=== PATIENT | male | born 1975 | race Two or more races ===

== ENCOUNTER 2020-01-14 19:52 | Emergency (ER) | payer BC ==
[~2020-01-14] VITALS: Ht 177.8 cm; Wt 79.4 kg
[~2020-01-14 19:52] MED LIST: NAPR375T27 PO
[2020-01-14] MEDS ORDERED: ASPirin 81 mg TAB PO ONE (20:30)
[2020-01-14 21:33] LABS: Basophils # (auto) 0 10 ^3/uL (0-0.2); Basophils % (auto) 0.6 % (0.0-2.0); Eosinophils # (auto) 0.2 10 ^3/uL (0-0.8); Eosinophils % (auto) 3.5 % (0.0-7.0); Hematocrit 44.9 % (41.0-53.0); Lymphocytes # (auto) 1.3 10 ^3/uL (0.4-5.4); Mean Corpuscular Hemoglobin 30.2 pg (28.0-32.0); Mean Corpuscular Hgb Conc. 33.4 g/dL (32.0-36.0); Mean Corpuscular Volume 90.4 fL (80.0-100.0); Monocytes # (auto) 0.4 10 ^3/uL (0-1.3); Monocytes % (auto) 6.9 % (0.0-12.0); Neutrophils # (auto) 4.2 10 ^3/uL (1.6-8.6); Platelet Count (auto) 230 10^3/uL (140-450); Red Blood Cells 4.97 10^6/uL (4.5-5.90); Red Cell Distribution Width 12.9 % (11.8-14.3); White Blood Cell 6.2 10^3/uL (4.4-10.8)
[2020-01-14 21:49] LABS: Albumin 3.7 g/dL (3.4-5.0); Anion Gap 4 (5-15); Calcium 8.6 mg/dL (8.5-10.1); Carbon Dioxide 30 mmol/L (21-32); Chloride 106 mmol/L (98-107); Potassium 3.7 mmol/L (3.5-5.1); Sodium 140 mmol/L (136-145)
[2020-01-14 21:53] LABS: Alanine Aminotransferase 23 U/L (16-61); Aspartate Aminotransferase 22 U/L (15-37); BUN/Creatinine Ratio 23.6; Blood Urea Nitrogen 25 mg/dL (7-18); GFR African American 97 mL/min; GFR Non-African American 80 mL/min; Glucose 90 mg/dL (74-106); Magnesium 2.3 mg/dL (1.6-2.6)
[2020-01-14 21:58] LABS: Alkaline Phosphatase 56 U/L (45-117); Bilirubin, Total 0.4 mg/dL (0.2-1.0)
[2020-01-14 22:38] LABS: INR 1.15 (0.9-1.15); Partial Thromboplastin Time 27.7 sec (23.64-32.05)
== END 2020-01-15 00:45 | disposition home or self-care (01) ==
LOC: ER 19:52 → MERGE 19:52 → ER 01-15 00:45
DX: K29.70 Gastritis, unspecified, without bleeding (principal); F41.9 Anxiety disorder, unspecified
CPT/HCPCS: 36415; 71046; 80053; 83735; 83880; 84443; 84484; 85025; 85610; 85730; 93005

== ENCOUNTER 2022-03-11 01:51 | Emergency (ER) | payer BC, OTHER ==
[~2022-03-11] VITALS: Ht 175.3 cm; Wt 95.3 kg
[2022-03-11 03:12] LABS: Basophils # (auto) 0 10 ^3/uL (0-0.2); Basophils % (auto) 0.8 % (0.0-2.0); Eosinophils # (auto) 0.2 10 ^3/uL (0-0.8); Eosinophils % (auto) 3.9 % (0.0-7.0); Hematocrit 43.1 % (41.0-53.0); Hemoglobin 14.9 g/dL (13.5-17.5); Lymphocytes # (auto) 1.1 10 ^3/uL (0.4-5.4); Lymphocytes % (auto) 21.1 % (10.0-50.0); Mean Corpuscular Hemoglobin 30.6 pg (28.0-32.0); Mean Corpuscular Hgb Conc. 34.5 g/dL (32.0-36.0); Mean Corpuscular Volume 88.7 fL (80.0-100.0); Monocytes # (auto) 0.5 10 ^3/uL (0-1.3); Monocytes % (auto) 9.7 % (0.0-12.0); Neutrophils # (auto) 3.5 10 ^3/uL (1.6-8.6); Neutrophils % (auto) 64.5 % (37.0-80.0); Red Blood Cells 4.86 10^6/uL (4.5-5.90); White Blood Cell 5.3 10^3/uL (4.4-10.8)
[2022-03-11 03:30] LABS: Albumin 3.7 g/dL (3.4-5.0); Calcium 8.6 mg/dL (8.5-10.1); Potassium 4.1 mmol/L (3.5-5.1)
[2022-03-11 03:33] LABS: BUN/Creatinine Ratio 17.1; Bilirubin, Total 0.3 mg/dL (0.2-1.0)
[2022-03-11 04:50] VITALS: BP 131/75
== END 2022-03-11 04:56 | disposition home or self-care (01) ==
LOC: ER 01:51
DX: R07.89 Other chest pain (principal); F43.21 Adjustment disorder with depressed mood
CPT/HCPCS: 36415; 71045; 80053; 83880; 84484; 85025; 93005

== ENCOUNTER 2024-06-29 15:09 | Emergency (ER) | payer BC ==
[~2024-06-29] VITALS: Ht 175.3 cm; Wt 99.4 kg
[~2024-06-29 15:09] MED LIST changes: +NAPR-957 PO; -NAPR375T27 PO
[2024-06-29 17:24] LABS: Urine Bacteria None Seen /hpf (None Seen)
[2024-06-29 17:36] LABS: Urine Blood Negative /uL (Negative); Urine Clarity Clear (Clear); Urine Color Light-Yellow (Yellow); Urine Protein, UAD Negative (Negative); Urine Specific Gravity 1.025 (1.001-1.035); Urine Urobilinogen Normal (Negative); Urine WBC <1 /hpf (0 - 3); Urine pH 6.5 (5.0-9.0)
[2024-06-29] MEDS ORDERED: TAMS-35 PO (17:46)
[2024-06-29] MEDS ORDERED: CYCL-837 PO (17:46)
[2024-06-29] MEDS ORDERED: IBUP-1455 PO (17:46)
[2024-06-29 18:10] VITALS: BP 151/97; PULSE 70; RESP 18; TEMP 98; O2SAT 96
== END 2024-06-29 18:25 | disposition home or self-care (01) ==
LOC: ER 15:09
DX: S20.20XA Contusion of thorax, unspecified, initial encounter (principal); N20.0 Calculus of kidney; Z88.6 Allergy status to analgesic agent; W01.0XXA Fall on same level from slipping, tripping and stumbling without subsequent striking against object, initial encounter; Y93.89 Activity, other specified; Y92.89 Other specified places as the place of occurrence of the external cause; Y99.8 Other external cause status
CPT/HCPCS: 71250; 74176; 81001